=== PATIENT | female | born 1990 | race Caucasian/White ===

== ENCOUNTER → 2016-06-13 | Outpatient (CLI) | payer OTHER ==
--- NOTE | 2016-06-13 20:00 | L&D Flow Sheet ---
LD Flowsheet Datetime Report Generated by CPN: 06/13/2016 20:00 Datetime: 06/13/2016 19:55 Pulse: 132 (QS system process) SpO2 (%): 96 (QS system process) Datetime: 06/13/2016 19:53 Uterine Activity Frequency (min): pt states that she had 2 contractions today (Barb Cannon, RN) Pain Pain Scale: 0 (Barb Cannon RN) Pain Presence: None/Denies (Barb Cannon, RN) Pain Type: N/A (Barb Cannon, RN) Pain Relief Measures: Comfort Measures (Barb Cannon, RN) Vaginal Exam Membrane Status: Intact (Barb Cannon, RN) Vaginal Bleeding: Scant (Barb Cannon, RN) Maternal Assessment Level of Consciousness: Fully Conscious (Barb Chalman, RN) DTR's/Clonus: DTRs 1+ (Barb Chalman, RN) Headache: Denies (Barb Chalman, RN) Breath Sounds, Left: Clear and Equal (Barb Chalman, RN) Breath Sounds, Right: Clear and Equal (Barb Chalman, RN) Nausea/Vomiting: Denies (Barb Chalman, RN) RUQ Epigastric Pain: Denies (Barb Chalman, RN) Datetime: 06/13/2016 19:51 Vital Signs NBP Sys/Toyin/Mean (mmHg): 124 (QS system process) : 83 (QS system process) : 100 (QS system process) Pulse: 141 (QS system process) Datetime: 06/13/2016 19:50 Pulse: 140 (QS system process) SpO2 (%): 96 (QS system process) Datetime: 06/13/2016 19:48 Vital Signs NBP Sys/Toyin/Mean (mmHg): 119 (QS system process) : 80 (QS system process) : 95 (QS system process) Pulse: 173 (QS system process)
[2016-06-13 20:04] LABS: APPEARANCE,URINE CLOUDY; BILIRUBIN,URINE NEGATIVE (NEGATIVE); GLUCOSE, URINE NEGATIVE (NEGATIVE); KETONES,URINE NEGATIVE (NEGATIVE); LEUKOCYTE ESTERASE,URINE LARGE (NEGATIVE); NITRITE,URINE NEGATIVE (NEGATIVE); PROTEIN,URINE NEGATIVE (NEGATIVE); URINE SPECIFIC GRAVITY 1.005; UROBILINOGEN,URINE NEGATIVE mg/dL (<2.0)
[2016-06-13 20:14] LABS: URINE BARBITURATES SCREEN NEGATIVE; URINE METHADONE SCREEN NEGATIVE; URINE OPIATES LOW NEGATIVE; URINE PHENCYCLIDINE SCREEN NEGATIVE
--- NOTE | 2016-06-13 20:43 | Non Stress Test Report ---
Non Stress Test Datetime Report Generated by CPN: 06/13/2016 20:43 DEMOGRAPHIC EGA NST: 34.3 INDICATION Indication for Study: Other Indication for Study (NST) Other: LC URINE RESULTS Urine Protein, NST: Negative Urine Ketones - NST: Negative Urine Glucose - NST: Negative Urine Blood - NST: Positive MONITORING Monitor Explained: Monitor Explained; Test Explained; Patient Verbalized Understanding Time on Monitor: 06/13/2016 19:45 Time off Monitor: 06/13/2016 20:30 NST Duration: 45 NST INTERVENTIONS NST Interventions: PO Hydration Physician Notified NST: LC BABY A: [id number] BABY A Movement : Present Contraction Frequency : none noted FHR Baseline : 135 Accelerations : 15X15 Decelerations : None Variability : Moderate 6-25bpm NST Review: Meets Criteria for Reactive NST NST Review and Verified By : Radhika Cannon RN NST Results: Reactive NST REPORT Report Trigger: Send Report
--- NOTE | 2016-06-19 12:16 | L&D General Admission ---
General Admit Datetime Report Generated by CPN: 06/19/2016 12:16 INFORMATION Patient Age: 25 (06/13/2016 19:19:QS system process) EDC: 07/22/2016 00:00 (06/13/2016 19:22:Barb Cannon RN) EDC per Ultrasound: 07/22/2016 00:00 (06/13/2016 19:22:Kiesha Gaspar RN) : 1 (06/13/2016 19:22:Barb Cannon RN) Para: 0 (06/13/2016 19:22:Barb Cannon RN) Cesareans: 0 (06/13/2016 19:22:Kiesha Gaspar RN) VBACs: 0 (06/13/2016 19:22:Kiesha Gaspar RN) Ectopic: 0 (06/13/2016 19:22:Kiesha Gaspar RN) Multiple Births: 0 (06/13/2016 19:22:Kiesha Gaspar RN) Baby, Number in Womb: 1 (06/13/2016 19:22:Kiesha Ring, RN) CARE Primary Hot Plate [employer] Press Offbearer: Other-Annotate (06/13/2016 19:22:Kiesha Ring, RN) Hot Plate Plywood Press Offbearer Other: Naval (06/13/2016 19:22:Kiesha Ring, RN) Height (in): 64 (06/13/2016 20:51:QS system process) Height (in): 64 (06/13/2016 19:47:QS system process) ALLERGIES Medication Allergy: Yes (06/13/2016 19:22:Barb Chalman, RN) Medication Allergies: hydromorphone/SV/Hives (06/13/2016) (06/13/2016 19:47:QS system process) DEMOGRAPHICS Address: [address] [place] [address] [place] [address] (06/13/2016 19:19:QS system process) Zipcode: [address] (06/13/2016 19:19:QS system process) Home (06/13/2016 19:19:QS system process) SSN: [id number] (06/13/2016 19:19:QS system process) Next of Kin Name: NEEL WADDELL (06/13/2016 19:19:QS system process) Next of Kin (06/13/2016 19:19:QS system process) Next of Kin Relationship: SPO (06/13/2016 19:19:QS system process) Date of : 1990 (06/13/2016 19:19:QS system process) Marital Status: (06/13/2016 19:19:QS system process) Sex: Female (06/13/2016 19:19:QS system process) Race: (06/13/2016 19:19:QS system process) Ethnicity: Non- or (06/13/2016 19:19:QS system process) Amish: Yarsani (06/13/2016 19:19:QS system process) LABS Blood Type: A Positive (06/13/2016:22:Barb Cannon RN)
--- NOTE | 2016-06-19 12:16 | L&D Current Admission ---
Current Admit Datetime Report Generated by CPN: 06/19/2016 12:16 ADMISSION INFORMATION Chief Complaint: Vaginal Bleeding (06/13/2016 19:53:Barb Cannon RN)
--- NOTE | 2016-06-19 12:17 | L&D Discharge Summary ---
OB Discharge Summary Datetime Report Generated by CPN: 06/19/2016 12:17 DISCHARGE DIAGNOSIS Diagnosis/Symptoms: False Labor Gestation: 34.5 Number of Babies in Womb: 1 Parity: 0 DIET/ACTIVITY/RESTRICTIONS Diet: Regular Activity: Normal Activity TEACHING/INSTRUCTIONS/REFERRALS Instructions Given To: p Instructions Understood: Patient Verbalized Understanding; Support Person Verbalized Understanding Referrals: None DISCHARGE INFORMATION Discharged AMA: No Discharge Date/Time: 06/13/2016 20:38 Discharged To: Home Discharge Provider Name: Rodriguez Accompanied By: Discharge Method: Ambulatory Condition: Stable FOLLOW UP INFORMATION Follow Up With: Other-Annotate Follow Up On: As Scheduled Comments: pt educated on kick counts and pre term labor pre cautions. pt instructed to return to hosptial for SRON, decreased fm, bleeding like period or more than 6 contractions an hr. pt verblized understanding and agreed to POC
--- NOTE | 2016-06-19 12:17 | L&D Flow Sheet ---
LD Flowsheet Datetime Report Generated by CPN: 06/19/2016 12:16 Datetime: 06/13/2016 20:30 Assessment A Monitor Mode: External US (Barb Cannon RN) FHR Baseline Rate : 140 (Barb Cannon, RN) Variability: Moderate 6-25 bpm (Barb Cannon, RN) Accelerations: 15X15 (Barb Cannon, RN) Decelerations: None (Barb Cannon, RN) Patient Care Patient Care Comments: monitors d/c and pt up getting dressed (Barb Cannon, RN) Datetime: 06/13/2016 20:25 Pulse: 102 (QS system process) SpO2 (%): 97 (QS system process) Patient Care Patient Care Comments: Dr. Rodriguez at bedside to eval pt. Spec exam performed. no blooded noted on pad or in vagina. Per Dr. Rodriguez pt ok to be d/c home with education on pre term labor precautions and kick counts (Barb Chalman, RN) Communication LaborFlag: Antepartum (QS system process) Datetime: 06/13/2016 20:20 Pulse: 98 (QS system process) SpO2 (%): 97 (QS system process) Communication LaborFlag: Antepartum (QS system process) Datetime: 06/13/2016 20:18 NBP Sys/Toyin/Mean (mmHg): 120 (QS system process) : 64 (QS system process) : 85 (QS system process) Pulse: 101 (QS system process) Communication LaborFlag: Antepartum (QS system process) Datetime: 06/13/2016 20:15 Pulse: 103 (QS system process) SpO2 (%): 96 (QS system process) Uterine Activity Monitor Mode: External; Palpation (Barb Chalman, RN) Frequency (min): none (Barb Chalman, RN) Assessment A Monitor Mode: External US (Barb Chalman, RN) FHR Baseline Rate : 145 (Barb Chalman, RN) FHR Baseline Changes: No Baseline Change (Barb Chalman, RN) Variability: Moderate 6-25 bpm (Barb Chalman, RN) Accelerations: 15X15 (Barb Chalman, RN) Decelerations: None (Barb Chalman, RN) Communication LaborFlag: Antepartum (QS system process) Datetime: 06/13/2016 20:12 Patient Care Patient Care Comments: report called to Dr. Rodriguez. provider to come to bedside to eval pt (Barb Chalman, RN) Datetime: 06/13/2016 20:10 Pulse: 107 (QS system process) SpO2 (%): 96 (QS system process) Communication LaborFlag: Antepartum (QS system process) Datetime: 06/13/2016 20:05 Pulse: 105 (QS system process) SpO2 (%): 96 (QS system process) Communication LaborFlag: Antepartum (QS system process) Datetime: 06/13/2016 20:03 NBP Sys/Toyin/Mean (mmHg): 119 (QS system process) : 71 (QS system process) : 89 (QS system process) Pulse: 112 (QS system process) Communication LaborFlag: Antepartum (QS system process) Datetime: 06/13/2016 20:00 Pulse: 130 (QS system process) SpO2 (%): 97 (QS system process) Uterine Activity Monitor Mode: External; Palpation (Barb Chalman, RN) Frequency (min): none (Barb Chalman, RN) Assessment A Monitor Mode: External US (Barb Chalman, RN) FHR Baseline Rate : 145 (Barb Chalman, RN) FHR Baseline Changes: No Baseline Change (Barb Chalman, RN) Variability: Moderate 6-25 bpm (Barb Chalman, RN) Decelerations: Early (Barb Chalman, RN) Communication LaborFlag: Antepartum (QS system process) Datetime: 06/13/2016 19:55 Pulse: 132 (QS system process) SpO2 (%): 96 (QS system process) Communication LaborFlag: Antepartum (QS system process) Datetime: 06/13/2016 19:53 Frequency (min): pt states that she had 2 contractions today (Barb Cannon, RN) Pain Pain Scale: 0 (Barb Cannon, RN) Pain Presence: None/Denies (Barb Cannon, RN) Pain Type: N/A (Barb Davis, RN) Pain Relief Measures: Comfort Measures (Barb Davis, RN) Vaginal Exam Membrane Status: Intact (Barb aDvis, RN) Vaginal Bleeding: Scant (Barb Anthonyman, RN) Maternal Assessment Level of Consciousness: Fully Conscious (Barb Davis, RN) DTR's/Clonus: DTRs 1+ (Barb Davis, RN) Headache: Denies (Barb Anthonyman, RN) Breath Sounds, Left: Clear and Equal (Barb Davis, RN) Breath Sounds, Right: Clear and Equal (Barb Davis, RN) Nausea/Vomiting: Denies (Barb Davis, RN) RUQ Epigastric Pain: Denies (Barb Anthonyman, RN) Communication LaborFlag: Antepartum (QS system process) Datetime: 06/13/2016 19:51 NBP Sys/Toyin/Mean (mmHg): 124 (QS system process) : 83 (QS system process) : 100 (QS system process) Pulse: 141 (QS system process) Communication LaborFlag: Antepartum (QS system process) Datetime: 06/13/2016 19:50 Pulse: 140 (QS system process) SpO2 (%): 96 (QS system process) Communication LaborFlag: Antepartum (QS system process) Datetime: 06/13/2016 19:49 Patient Care Patient Care Comments: pt states thatshe is feeling hot , dizzy and her heart racing. pt turned to extreme right and pulse continuously monitored (Barb Chalman, RN) Datetime: 06/13/2016 19:48 NBP Sys/Toyin/Mean (mmHg): 119 (QS system process) : 80 (QS system process) : 95 (QS system process) Pulse: 173 (QS system process) Communication LaborFlag: Antepartum (QS system process) Datetime: 06/13/2016 19:00 Vital Signs Stage of : Antepartum (Barb Cannon, KAYDEN)
--- NOTE | 2016-06-19 12:20 | Antepartum Discharge Summary ---
Antepartum DC Datetime Report Generated by CPN: 06/19/2016 12:19 DIET/ACTIVITY/RESTRICTIONS Diet: Regular (06/13/2016 20:43:Barb Chalman, RN) Activity: Normal Activity (06/13/2016 20:43:Barb Davis, RN) TEACHING/INSTRUCTIONS/REFERRALS Instructions Given To: p (06/13/2016 20:43:Barb Cannon, RN) Instructions Understood: Patient Verbalized Understanding; Support Person Verbalized Understanding (06/13/2016 20:43:Barb Cannon RN) Referrals: None (06/13/2016 20:43:Barb Cannon RN) DISCHARGE INFORMATION Discharged AMA: No (06/13/2016 20:43:Barb Cannon RN) Discharge Date/Time: 06/13/2016 20:38 (06/13/2016 20:43:Barb Cannon RN) Discharged To: Home (06/13/2016 20:43:Barb Cannon RN) Discharge Provider Name: Rodriguez (06/13/2016 20:43:Barb Cannon RN) Accompanied By: (06/13/2016 20:43:Barb Cannon RN) Discharge Method: Ambulatory (06/13/2016 20:43:Barb Cannon RN) Condition: Stable (06/13/2016 20:43:Barb Cannon RN) FOLLOW UP INFORMATION Follow Up With: Other-Annotate (06/13/2016 20:43:Barb Cannon RN) Follow Up On: As Scheduled (06/13/2016 20:43:Barb Cannon RN) Comments: pt educated on kick counts and pre term labor pre cautions. pt instructed to return to hosptial for SRON, decreased fm, bleeding like period or more than 6 contractions an hr. pt verblized understanding and agreed to POC (06/13/2016 20:43:Barb Cannon RN)
== END | disposition home or self-care (01) ==
LOC: LC 19:19
PROVIDERS: ATTEND Obstetrics & Gynecology
PROC: 4A1HXCZ Monitoring of Products of Conception, Cardiac Rate, External Approach (ICD-10-PCS; principal; 2016-06-13)
DX: O36.8130 Decreased fetal movements, third trimester, not applicable or unspecified (principal); Z3A.34 34 weeks gestation of pregnancy
CPT/HCPCS: 59025; 80307; 81001